=== PATIENT | female | born 2000 | race Caucasian/White ===

== ENCOUNTER → 2025-05-23 | Day surgery (SDC) | payer OTHER ==
[2025-05-22 09:45] LABS: URINE APPEARANCE Clear; URINE BILIRRUBIN Negative (NEGATIVE); URINE BLOOD Negative; URINE COLOR Yellow; URINE GLUCOSE Negative (NEGATIVE); URINE KETONE Negative (NEGATIVE); URINE LEUKOCYTE Negative; URINE NITRATE Negative; URINE PROTEIN Negative (NEGATIVE); URINE UROBILINOGEN 0.2 E.U./dl
[2025-05-22 09:49] LABS: URINE BACTERIA 23.9 uL (0.0-1933); URINE EPITHELIAL CELLS 5.5 uL (0.0-38.8); URINE RBC 3.2 uL (0.0-20.8); URINE WBC 2.2 uL (0.0-23.2)
[2025-05-22 09:56] LABS: BASO % 0.6 % (0.1-1.2); EOS # 0.18 (0.04-0.54); EOS % 2.7 % (0.7-7.0); LYMPH # 1.68 (1.18-3.74); LYMPH % 25.1 % (19.3-53.1); MEAN PLATELET VOLUME 10.50 fl (9.4-12.4); MONO # 0.30 (0.24-0.82); MONO % 4.5 % (4.7-12.5); NEUT # 4.48 (1.56-6.13); NEUT % 67.0 % (34.0-71.1); RED CELL DISTRIBUTION WIDTH 12.5 % (11.6-14.4)
[2025-05-22 10:03] LABS: URINE CAST 0.00 uL (0.0-1.40)
[2025-05-22 10:04] LABS: INR 0.97
[2025-05-22 10:16] LABS: COVID-19 AG NEGATIVE (NEGATIVE)
[2025-05-22 10:42] LABS: ALT/SGPT 27.0 U/L (12-78); AST/SGOT 13.0 U/L (15-37); BILIRUBIN TOTAL 0.31 mg/dL (0.3-1.2); BUN CREA RATIO 13.0 (7.0-25.0); CREATININE SERUM 0.72 mg/dL (0.55-1.02); GFR 99.52; GLOBULINA 3.7 G/DL (2.4-3.5); GLUCOSE FASTING 90.0 mg/dL (65-100); OSMOLALITY SERUM 279.0 MOSM/KG (275-295)
[2025-05-22 12:39] VITALS: BP 129/90
[~2025-05-23] VITALS: Ht 165.1 cm; Wt 83.5 kg
[~2025-05-23] MED LIST: CEFAZOLIN SODIUM 1,000 MG VIAL ONE; CHLORHEXIDINE GLUCONATE 120 ML BOTTLE TOP ONE
== END | disposition home or self-care (01) ==
LOC: ADM 05-22 15:15 → CIR.AMB 07:00
PROVIDERS: ATTEND Surgery
DX: D48.62 Neoplasm of uncertain behavior of left breast (principal); D24.2 Benign neoplasm of left breast